=== PATIENT | female | born 1975 | race Asian ===

== ENCOUNTER → 2020-06-06 | Outpatient (CLI) | payer OTHER ==
[2020-06-07 09:42] LABS: RUBELLA AB IGG-REFLAB 3.79 index (Immune >0.99)
== END | disposition home or self-care (01) ==
LOC: LABMN 13:16
PROVIDERS: ATTEND Internal Medicine
DX: Z02.1 Encounter for pre-employment examination (principal)
CPT/HCPCS: 86735; 86762; 86765

== ENCOUNTER → 2020-06-09 | Outpatient (CLI) | payer OTHER | END | disposition home or self-care (01) | LOC: RADPV 11:13 | PROVIDERS: ATTEND Internal Medicine | DX: R76.11 Nonspecific reaction to tuberculin skin test without active tuberculosis (principal) | CPT/HCPCS: 71045-TC ==